=== PATIENT | female | born 1935 | race Caucasian/White ===

== ENCOUNTER 2016-05-17 11:02 | Day surgery (SDC) | payer MEDICARE, OTHER ==
[2016-05-14 14:46] LABS: ASPARTATE AMINO TRANSFERASE 20 U/L (15-37); BLOOD UREA NITROGEN 11 mg/dL (7-18)
[~2016-05-17] VITALS: Ht 162.6 cm; Wt 64.0 kg
[~2016-05-17 11:02] MED LIST: BUPR100T11 PO; DIGO125T PO; ENOX30SY4 SQ; ESTR1TAB15 PO; FURO40TA6 PO; LOSA25TA5 PO; METO25TA35 PO; OMEP-110 PO; OXYC5CAP4 PO; POTASSIUM PO; SPIR1TAB3 PO; VILA40TA PO; WARF2.5T73 PO
[2016-05-17] MEDS ORDERED: LACTATED RINGERS 1,000 ML IV SCH (12:07)
[2016-05-17 12:08] VITALS: BP 104/61
[2016-05-17] MEDS ORDERED: FENTANYL PF 250 MCG/5ML ONE (12:14)
[2016-05-17] MEDS ORDERED: MIDAZOLAM 1 MG/ML, 2ML ONE (12:14)
[2016-05-17] MEDS ORDERED: KETAMINE 10 MG/ML, 20ML ONE (12:27)
[2016-05-17] MEDS ORDERED: ALBUTEROL SULFATE 200 PUFFS/8.5 GR INH ONE (12:48)
[2016-05-17] MEDS ORDERED: DEXAMETHASONE 4 MG/ML, 5ML ONE (12:48)
[2016-05-17] MEDS ORDERED: PROPOFOL 10 MG/ML, 20ML ONE (12:48)
[2016-05-17] MEDS ORDERED: ROCURONIUM 10 MG/ML ONE (12:48)
[2016-05-17] MEDS ORDERED: SUCCINYLCHOLINE 20 MG/ML, 10ML ONE (12:48)
[2016-05-17] MEDS ORDERED: PHENYLEPHRINE 10 MG/ML ONE (12:48)
[2016-05-17] MEDS ORDERED: OXYcodone 5 MG/5 ML ORAL.SOL UDC PO PRN (13:30)
[2016-05-17] MEDS ORDERED: LABETALOL 5MG/ML, 20ML IV PRN (13:30)
[2016-05-17] MEDS ORDERED: FENTANYL PF 100 MCG/2ML IV PRN (13:30)
[2016-05-17] MEDS ORDERED: MIDAZOLAM 1 MG/ML, 2ML IV PRN (13:30)
[2016-05-17] MEDS ORDERED: ACETAMINOPHEN 325 MG TABLET PO PRN (13:30)
[2016-05-17] MEDS ORDERED: ONDANSETRON 2MG/ML, 2ML IVPush PRN (13:30)
[2016-05-17] MEDS ORDERED: hydrALAzine 20 MG/ML, 1ML IV PRN (13:30)
[2016-05-17] MEDS ORDERED: ALBUTEROL SULFATE 2.5 MG/3 ML NPPB PRN (13:30)
[2016-05-17] MEDS ORDERED: HYDROmorphone 1 MG/ML, 1ML IV PRN (13:30)
[2016-05-17] MEDS ORDERED: MEPERIDINE/PF 25MG/0.5ML IVPush PRN (13:30)
[2016-05-17] MEDS ORDERED: PROMETHAZINE 25 MG/ML, 1ML IV PRN (13:30)
[2016-05-17] MEDS ORDERED: ALBUTEROL SULFATE 2.5 MG/3 ML ONE (14:19)
[2016-05-17] MEDS ORDERED: OXYcodone 5 MG/5 ML ORAL.SOL UDC ONE (15:13)
== END 2016-05-17 16:45 | disposition home or self-care (01) ==
LOC: SDC 11:02
PROVIDERS: ATTEND Internal Medicine
DX: R19.8 Other specified symptoms and signs involving the digestive system and abdomen (principal); J45.909 Unspecified asthma, uncomplicated; I48.91 Unspecified atrial fibrillation; F17.210 Nicotine dependence, cigarettes, uncomplicated; I10 Essential (primary) hypertension; Z72.89 Other problems related to lifestyle; Z82.49 Family history of ischemic heart disease and other diseases of the circulatory system; Z95.0 Presence of cardiac pacemaker; Z79.01 Long term (current) use of anticoagulants; J43.9 Emphysema, unspecified
CPT/HCPCS: 31623; 31624; 31627; 31628; 36415; 71010; 80053; 85610; 85730; 88108; 88112; 88172; 88177; 88305; 88341; 88342; 94640; J0330; J1100; J2250; J2370; J2704; J3010; 31625; 76000; 76001; G0461

== ENCOUNTER → 2016-12-12 | Outpatient (CLI) | payer MEDICARE, OTHER ==
[~2016-12-12] MED LIST changes: +OXYC5CAP2 PO; -OXYC5CAP4 PO; +POTA10CA PO
== END | disposition home or self-care (01) ==
LOC: ROC 14:07
PROVIDERS: ATTEND Radiology Radiation Oncology
DX: C34.11 Malignant neoplasm of upper lobe, right bronchus or lung (principal)
CPT/HCPCS: G0463

== ENCOUNTER 2018-08-22 21:29 | Inpatient (IN) | payer MEDICARE, OTHER ==
[~2018-08-22] VITALS: Ht 165.1 cm; Wt 63.7 kg
[~2018-08-22 21:29] MED LIST changes: +LOSA25TA25 PO; -LOSA25TA5 PO; +WARF2.5T32 PO; -WARF2.5T73 PO
--- NOTE | 2018-08-22 21:35 | NUR ---
ANNE. REPORT RECEIVED FROM EMS. PT C/O COUGH/SOB(COLD SYMPTOMS) X 1 WEEK AND GETTING WORSE. PT HAS PACEMAKER, HX OF A-FIB,COPD,ASTHMA. PT'S AOX4. RESPS EVEN AND UNLABORED. PT USES OXY 3L AT NIGHT EVERYDAY. SPO2 >95% WITH 2L AT THIS TIME. ALL MONITORS IN PLACE. CALL LIGHT WITHIN REACH. EKG DONE AT BEDSIDE BY EMT. EDMD AT BEDSIDE TO ASSESS.
[2018-08-22] MEDS ORDERED: ALBUTEROL SULFATE 2.5 MG/3 ML ONE (21:50)
--- NOTE | 2018-08-22 21:51 | NUR ---
RT AT BEDSIDE NOW.
[2018-08-22] MEDS ORDERED: BUPR100T11 PO (21:56)
[2018-08-22] MEDS ORDERED: IPRA0.2S35 INH (21:56)
[2018-08-22] MEDS ORDERED: ALBUTEROL SULFATE 2.5 MG/3 ML NPPB ONE (22:00)
[2018-08-22 22:14] LABS: BASOPHILS # (AUTO) 0.01 x10^3/uL (0-0.1); BASOPHILS % (AUTO) 0 % (0-1); EOSINOPHILS # (AUTO) 0.05 x10^3/uL (0-0.4); EOSINOPHILS % (AUTO) 1 % (1-7); LYMPHOCYTES % (AUTO) 8 % (22-44); MD NO; MEAN CORPUSCULAR HEMOGLOBIN 30.9 pg (27.0-34.8); MEAN CORPUSCULAR HGB CONC 32.5 g/dL (32.4-35.8); MEAN PLATELET VOLUME 6.9 fL (7.4-10.4); MONOCYTES # (AUTO) 0.46 x10^3/uL (0.2-0.8); MONOCYTES % (AUTO) 5 % (2-9); NEUTROPHILS # (AUTO) 8.38 x10^3/uL (1.8-6.8); NEUTROPHILS % (AUTO) 86 % (42-75); PLATELET COUNT 199 x10^3/uL (130-400); RED BLOOD COUNT 3.84 x10^6/uL (3.82-5.3); RED CELL DISTRIBUTION WIDTH 14.3 % (9.6-15.2)
[2018-08-22 22:28] LABS: ALANINE AMINOTRANSFERASE 17 U/L (12-78); ANION GAP 6 mmol/L (5-15); CALCIUM 8.7 mg/dL (8.5-10.1); CHLORIDE 102 mmol/L (98-107); CREATININE 0.64 mg/dL (0.55-1.02)
[2018-08-22] MEDS ORDERED: CEFTRIAXONE PMX 1GM/50ML 50 ML IV ONE (22:30)
[2018-08-22] MEDS ORDERED: AZITHROMYCIN 500 MG in SODIUM CHLORIDE 0.9% 250 ML IV ONE (22:30)
[2018-08-22 22:32] LABS: ALKALINE PHOSPHATASE 78 U/L (45-117); BILIRUBIN,TOTAL 0.3 mg/dL (0.2-1.0); TOTAL PROTEIN 6.5 g/dL (6.4-8.2); TROPONIN I 0.016 ng/mL (0.000-0.045)
[2018-08-22 22:57] LABS: INTERNATIONAL NORMALIZED RATIO 3.04 (0.93-1.1); PROTHROMBIN TIME 30.6 Seconds (9.6-11.5)
--- NOTE | 2018-08-22 23:27 | NUR ---
report given to sameer cook. all questions answered.
[2018-08-23] MEDS ORDERED: KETOROLAC 30 MG/1 ML IV PRN (00:30)
[2018-08-23] MEDS ORDERED: LABETALOL 5MG/ML, 20ML IVPush PRN (00:30)
[2018-08-23] MEDS ORDERED: morphine SULFATE 10 MG/ML, 1ML IVPush PRN (00:30)
[2018-08-23] MEDS ORDERED: ONDANSETRON 2MG/ML, 2ML IVPush PRN (00:30)
[2018-08-23] MEDS ORDERED: POLYETHYLENE GLYCOL 17 GM PACKET PO PRN (00:30)
[2018-08-23] MEDS: CEFTRIAXONE PMX 1GM/50ML 50 ML IV SCH (01:06)
[2018-08-23] MEDS: methylPREDNISolone SOD SUCC 125 MG/2 ML IVPush SCH ×4 (01:06→17:54)
[2018-08-23 01:17] VITALS: BP 137/57
[2018-08-23 02:04] LABS: TROPONIN I < 0.015 ng/mL (0.000-0.045)
[2018-08-23] MEDS: ALBUTEROL/IPRATROPIUM 2.5MG/0.5MG, 3 ML NPPB SCH ×5 (06:00→18:00)
[2018-08-23 06:26] LABS: INTERNATIONAL NORMALIZED RATIO 3.24 (0.93-1.1); PROTHROMBIN TIME 32.5 Seconds (9.6-11.5)
[2018-08-23 06:32] LABS: TROPONIN I < 0.015 ng/mL (0.000-0.045)
[2018-08-23 08:07] VITALS: BP 129/65
[2018-08-23] MEDS: SENNA/DOCUSATE TABLET PO SCH (09:00)
[2018-08-23] MEDS: DIGOXIN 0.25 MG TABLET PO SCH (09:54)
[2018-08-23] MEDS: BUPROPION 100 MG TABLET PO SCH (09:54)
[2018-08-23] MEDS: AZITHROMYCIN 250 MG TABLET PO SCH (09:54)
[2018-08-23] MEDS: METOPROLOL TARTRATE 25 MG TABLET PO SCH (09:55)
[2018-08-23] MEDS ORDERED: MAGNESIUM SULFATE PMX 2GM/50ML 50 ML IV ONE (11:30)
[2018-08-23 15:45] VITALS: BP 105/65
[2018-08-23] MEDS ORDERED: WARFARIN 1 MG TABLET PO-COUM ONE (18:00)
[2018-08-23 20:00] VITALS: BP 134/78
[2018-08-24] MEDS: methylPREDNISolone SOD SUCC 125 MG/2 ML IVPush SCH ×4 (00:28→21:02)
[2018-08-24] MEDS: CEFTRIAXONE PMX 1GM/50ML 50 ML IV SCH (00:29)
[2018-08-24 00:39] VITALS: BP 145/68
[2018-08-24 06:27] LABS: INTERNATIONAL NORMALIZED RATIO 2.87 (0.93-1.1); PROTHROMBIN TIME 28.9 Seconds (9.6-11.5)
[2018-08-24 06:36] LABS: MEAN CORPUSCULAR HEMOGLOBIN 30.9 pg (27.0-34.8); MEAN CORPUSCULAR HGB CONC 32.6 g/dL (32.4-35.8); MEAN CORPUSCULAR VOLUME 94.8 fL (80-100); PLATELET COUNT 225 x10^3/uL (130-400); RED BLOOD COUNT 3.66 x10^6/uL (3.82-5.3); RED CELL DISTRIBUTION WIDTH 14.2 % (9.6-15.2)
[2018-08-24 06:38] LABS: CHLORIDE 101 mmol/L (98-107)
[2018-08-24 06:48] LABS: ANION GAP 6 mmol/L (5-15); CALCIUM 9.2 mg/dL (8.5-10.1); CREATININE 0.58 mg/dL (0.55-1.02)
[2018-08-24 07:09] VITALS: BP 128/73
[2018-08-24 07:21] LABS: BASOPHILS # (AUTO) 0.02 x10^3/uL (0-0.1); BASOPHILS % (AUTO) 0 % (0-1); EOSINOPHILS % (AUTO) 0 % (1-7); LYMPHOCYTES # (AUTO) 1.15 x10^3/uL (1-3.4); LYMPHOCYTES % (AUTO) 6 % (22-44); MD SCAN; MONOCYTES # (AUTO) 0.37 x10^3/uL (0.2-0.8); MONOCYTES % (AUTO) 2 % (2-9); NEUTROPHILS # (AUTO) 17.84 x10^3/uL (1.8-6.8); NEUTROPHILS % (AUTO) 92 % (42-75)
[2018-08-24] MEDS: ALBUTEROL/IPRATROPIUM 2.5MG/0.5MG, 3 ML NPPB SCH ×5 (08:35→22:00)
[2018-08-24] MEDS: SENNA/DOCUSATE TABLET PO SCH (09:00)
[2018-08-24] MEDS: BUPROPION 100 MG TABLET PO SCH (10:01)
[2018-08-24] MEDS: AZITHROMYCIN 250 MG TABLET PO SCH (10:02)
[2018-08-24] MEDS: DIGOXIN 0.25 MG TABLET PO SCH (10:02)
[2018-08-24] MEDS: METOPROLOL TARTRATE 25 MG TABLET PO SCH (10:02)
[2018-08-24 13:55] VITALS: BP 135/56
[2018-08-24] MEDS ORDERED: WARFARIN 2 MG TABLET PO-COUM ONE (18:00)
[2018-08-24 19:03] VITALS: BP 127/74
[2018-08-25] MEDS: CEFTRIAXONE PMX 1GM/50ML 50 ML IV SCH ×2 (00:12→23:57)
[2018-08-25 00:28] VITALS: BP 112/70
[2018-08-25 05:38] LABS: MEAN CORPUSCULAR HEMOGLOBIN 31.1 pg (27.0-34.8); MEAN CORPUSCULAR HGB CONC 32.9 g/dL (32.4-35.8); MEAN CORPUSCULAR VOLUME 94.4 fL (80-100); MEAN PLATELET VOLUME 6.8 fL (7.4-10.4); PLATELET COUNT 251 x10^3/uL (130-400); RED BLOOD COUNT 3.64 x10^6/uL (3.82-5.3); RED CELL DISTRIBUTION WIDTH 13.9 % (9.6-15.2)
[2018-08-25 05:42] LABS: INTERNATIONAL NORMALIZED RATIO 2.44 (0.93-1.1); PROTHROMBIN TIME 24.8 Seconds (9.6-11.5)
[2018-08-25 05:47] LABS: CHLORIDE 102 mmol/L (98-107)
[2018-08-25 05:55] LABS: ANION GAP 5 mmol/L (5-15); CALCIUM 9.2 mg/dL (8.5-10.1); CREATININE 0.58 mg/dL (0.55-1.02)
[2018-08-25] MEDS: methylPREDNISolone SOD SUCC 125 MG/2 ML IVPush SCH ×3 (06:10→23:16)
[2018-08-25] MEDS: ALBUTEROL/IPRATROPIUM 2.5MG/0.5MG, 3 ML NPPB SCH ×5 (06:27→23:00)
[2018-08-25 06:30] LABS: BASOPHILS # (AUTO) 0.01 x10^3/uL (0-0.1); BASOPHILS % (AUTO) 0 % (0-1); EOSINOPHILS % (AUTO) 0 % (1-7); LYMPHOCYTES # (AUTO) 1.35 x10^3/uL (1-3.4); LYMPHOCYTES % (AUTO) 6 % (22-44); MD SCAN; MONOCYTES # (AUTO) 0.38 x10^3/uL (0.2-0.8); MONOCYTES % (AUTO) 2 % (2-9); NEUTROPHILS # (AUTO) 21.75 x10^3/uL (1.8-6.8); NEUTROPHILS % (AUTO) 93 % (42-75)
[2018-08-25 08:01] VITALS: BP 154/82
[2018-08-25] MEDS: SENNA/DOCUSATE TABLET PO SCH (09:00)
[2018-08-25] MEDS: BUPROPION 100 MG TABLET PO SCH (09:58)
[2018-08-25] MEDS: METOPROLOL TARTRATE 25 MG TABLET PO SCH (09:58)
[2018-08-25] MEDS: DIGOXIN 0.25 MG TABLET PO SCH (09:59)
[2018-08-25] MEDS: AZITHROMYCIN 250 MG TABLET PO SCH (09:59)
[2018-08-25 14:36] VITALS: BP 138/79
[2018-08-25] MEDS ORDERED: FUROSEMIDE 20 MG/2 ML IV ONE (17:00)
[2018-08-25] MEDS ORDERED: WARFARIN 2.5 MG TABLET PO-COUM ONE (18:00)
[2018-08-25 18:50] VITALS: BP 125/68
[2018-08-26 00:23] VITALS: BP 131/65
[2018-08-26] MEDS: methylPREDNISolone SOD SUCC 125 MG/2 ML IVPush SCH ×3 (05:20→21:21)
[2018-08-26 05:59] LABS: BASOPHILS % (AUTO) 0 % (0-1); EOSINOPHILS % (AUTO) 0 % (1-7); LYMPHOCYTES # (AUTO) 1.47 x10^3/uL (1-3.4); LYMPHOCYTES % (AUTO) 9 % (22-44); MD NO; MEAN CORPUSCULAR HGB CONC 32.6 g/dL (32.4-35.8); MEAN CORPUSCULAR VOLUME 95.2 fL (80-100); MEAN PLATELET VOLUME 6.9 fL (7.4-10.4); MONOCYTES # (AUTO) 0.36 x10^3/uL (0.2-0.8); MONOCYTES % (AUTO) 2 % (2-9); NEUTROPHILS # (AUTO) 14.55 x10^3/uL (1.8-6.8); NEUTROPHILS % (AUTO) 89 % (42-75); PLATELET COUNT 271 x10^3/uL (130-400); RED BLOOD COUNT 3.73 x10^6/uL (3.82-5.3); RED CELL DISTRIBUTION WIDTH 14.2 % (9.6-15.2)
[2018-08-26 06:08] LABS: INTERNATIONAL NORMALIZED RATIO 2.63 (0.93-1.1); PROTHROMBIN TIME 26.6 Seconds (9.6-11.5)
[2018-08-26 06:09] LABS: ANION GAP 4 mmol/L (5-15); CALCIUM 9.3 mg/dL (8.5-10.1); CHLORIDE 99 mmol/L (98-107)
[2018-08-26 06:10] LABS: CREATININE 0.69 mg/dL (0.55-1.02)
[2018-08-26] MEDS: ALBUTEROL/IPRATROPIUM 2.5MG/0.5MG, 3 ML NPPB SCH ×5 (07:40→22:00)
[2018-08-26 07:41] VITALS: BP 136/72
[2018-08-26] MEDS: SENNA/DOCUSATE TABLET PO SCH (08:35)
[2018-08-26] MEDS: BUPROPION 100 MG TABLET PO SCH (08:36)
[2018-08-26] MEDS: DIGOXIN 0.25 MG TABLET PO SCH (08:36)
[2018-08-26] MEDS: METOPROLOL TARTRATE 25 MG TABLET PO SCH (08:36)
[2018-08-26] MEDS: AZITHROMYCIN 250 MG TABLET PO SCH (08:36)
[2018-08-26 13:29] VITALS: BP 143/81
[2018-08-26] MEDS: FUROSEMIDE 20 MG/2 ML IV SCH (14:53)
[2018-08-26] MEDS: ACETAMINOPHEN 325 MG TABLET PO PRN ×2 (14:59→22:45)
[2018-08-26] MEDS ORDERED: WARFARIN 2.5 MG TABLET PO-COUM ONE (18:00)
[2018-08-26 18:49] VITALS: BP 134/76
[2018-08-26] MEDS: DOXYCYCLINE 100MG TABLET PO SCH (21:21)
[2018-08-27] MEDS: CEFTRIAXONE PMX 1GM/50ML 50 ML IV SCH (00:24)
[2018-08-27 00:28] VITALS: BP 128/73
[2018-08-27] MEDS: methylPREDNISolone SOD SUCC 125 MG/2 ML IVPush SCH ×3 (03:04→15:08)
[2018-08-27] MEDS: ALBUTEROL/IPRATROPIUM 2.5MG/0.5MG, 3 ML NPPB SCH ×4 (06:00→14:39)
[2018-08-27 06:01] LABS: INTERNATIONAL NORMALIZED RATIO 3.28 (0.93-1.1); PROTHROMBIN TIME 32.9 Seconds (9.6-11.5)
[2018-08-27] MEDS ORDERED: ALBUTEROL SULFATE 2.5 MG/3 ML NPPB PRN (07:00)
[2018-08-27 09:05] VITALS: BP 155/80
[2018-08-27] MEDS: FUROSEMIDE 20 MG/2 ML IV SCH (09:12)
[2018-08-27] MEDS: BUPROPION 100 MG TABLET PO SCH (09:16)
[2018-08-27] MEDS: SENNA/DOCUSATE TABLET PO SCH (09:16)
[2018-08-27] MEDS: METOPROLOL TARTRATE 25 MG TABLET PO SCH (09:17)
[2018-08-27] MEDS: DIGOXIN 0.25 MG TABLET PO SCH (09:17)
[2018-08-27] MEDS: DOXYCYCLINE 100MG TABLET PO SCH (09:17)
[2018-08-27 15:14] VITALS: BP 121/72
[2018-08-27] MEDS ORDERED: FURO20TA3 PO (16:57)
[2018-08-27] MEDS ORDERED: DOXY100T PO (16:57)
[2018-08-27] MEDS ORDERED: CEFD300C37 PO (16:57)
[2018-08-27] MEDS ORDERED: IPRA3AMP30 NPPB (16:57)
[2018-08-27] MEDS ORDERED: PRED5TAB PO (16:57)
[2018-08-27] MEDS ORDERED: GUAI600T PO (17:01)
[2018-08-27] MEDS ORDERED: WARFARIN 1 MG TABLET PO-COUM SCH (18:00)
== END 2018-08-27 18:38 | disposition home or self-care (01) | DRG 871 ==
LOC: ED 21:49 → EDIP 23:11 → 4WST 08-23 00:38
PROVIDERS: ADMIT Family Medicine; ATTEND Family Medicine
DX: A41.9 Sepsis, unspecified organism (principal); J15.9 Unspecified bacterial pneumonia; J96.21 Acute and chronic respiratory failure with hypoxia; D68.69 Other thrombophilia; J44.0 Chronic obstructive pulmonary disease with (acute) lower respiratory infection; J44.1 Chronic obstructive pulmonary disease with (acute) exacerbation; C34.90 Malignant neoplasm of unspecified part of unspecified bronchus or lung; I48.2 Chronic atrial fibrillation; Z88.8 Allergy status to other drugs, medicaments and biological substances; F32.9 Major depressive disorder, single episode, unspecified; I08.1 Rheumatic disorders of both mitral and tricuspid valves; I25.2 Old myocardial infarction; I50.810 Right heart failure, unspecified; Z66 Do not resuscitate; F17.210 Nicotine dependence, cigarettes, uncomplicated; Z82.49 Family history of ischemic heart disease and other diseases of the circulatory system; Z82.5 Family history of asthma and other chronic lower respiratory diseases; Z95.0 Presence of cardiac pacemaker; Z99.81 Dependence on supplemental oxygen; E87.70 Fluid overload, unspecified
CPT/HCPCS: 36415; 71045; 80048; 80053; 80162; 83605; 83735; 83880; 84145; 84443; 84484; 85025; 85610; 87040; 93005; 93306; 94640; 99291; G0378; J0456; J0696; J7613; J7620; J1940; J2930; J3475; J7050

== ENCOUNTER 2018-09-08 12:01 | Emergency (ER) | payer MEDICARE, OTHER ==
[~2018-09-08] VITALS: Ht 162.6 cm; Wt 62.1 kg
[~2018-09-08 12:01] MED LIST changes: +CEFD300C37 PO; +DOXY100T PO; +FURO20TA3 PO; +GUAI600T PO; +IPRA0.2S35 INH; +IPRA3AMP30 NPPB; +PRED5TAB PO
[2018-09-08 12:50] LABS: MEAN CORPUSCULAR HEMOGLOBIN 30.2 pg (27.0-34.8); MEAN CORPUSCULAR HGB CONC 31.9 g/dL (32.4-35.8); MEAN CORPUSCULAR VOLUME 94.9 fL (80-100); MEAN PLATELET VOLUME 6.8 fL (7.4-10.4); PLATELET COUNT 331 x10^3/uL (130-400); RED BLOOD COUNT 3.94 x10^6/uL (3.82-5.3); RED CELL DISTRIBUTION WIDTH 15.4 % (9.6-15.2)
[2018-09-08 12:59] LABS: ALANINE AMINOTRANSFERASE 22 U/L (12-78); ANION GAP 5 mmol/L (5-15); CALCIUM 8.2 mg/dL (8.5-10.1); CHLORIDE 105 mmol/L (98-107)
[2018-09-08 13:03] LABS: ALKALINE PHOSPHATASE 70 U/L (45-117); BILIRUBIN,TOTAL 0.8 mg/dL (0.2-1.0); CREATININE 0.91 mg/dL (0.55-1.02); TOTAL PROTEIN 5.6 g/dL (6.4-8.2)
[2018-09-08 13:09] LABS: BASOPHILS # (AUTO) 0.06 x10^3/uL (0-0.1); BASOPHILS % (AUTO) 1 % (0-1); EOSINOPHILS % (AUTO) 2 % (1-7); LYMPHOCYTES # (AUTO) 2.94 x10^3/uL (1-3.4); LYMPHOCYTES % (AUTO) 24 % (22-44); MD SCAN; MONOCYTES # (AUTO) 0.46 x10^3/uL (0.2-0.8); MONOCYTES % (AUTO) 4 % (2-9); NEUTROPHILS # (AUTO) 8.73 x10^3/uL (1.8-6.8); NEUTROPHILS % (AUTO) 71 % (42-75)
[2018-09-08 13:36] VITALS: BP 106/58
== END 2018-09-08 14:55 | disposition left against medical advice (07) ==
LOC: ED 14:49
DX: R10.9 Unspecified abdominal pain (principal)
CPT/HCPCS: 36415; 74022; 80053; 85025; 99284